=== PATIENT | male | born 1995 | race Caucasian/White ===

== ENCOUNTER 2024-12-01 21:38 | Emergency (ER) | payer SELFPAY ==
[~2024-12-01] VITALS: Ht 165.1 cm; Wt 77.0 kg
[2024-12-01 21:50] VITALS: TEMP 37; O2SAT 98
[2024-12-01] MEDS ORDERED: DIPHENHYDRAMINE 50MG CAPSULE PO ONE (22:45)
[2024-12-01] MEDS: PREDNISONE 20MG TABLET PO ONE (23:03)
[2024-12-01] MEDS: IBUPROFEN 600MG TABLET PO ONE (23:03)
[2024-12-01] MEDS: DIPHENHYDRAMINE 25MG CAPSULE PO NR (23:03)
[2024-12-02] MEDS ORDERED: P20 MT (01:18)
[2024-12-02] MEDS ORDERED: DIPH-1207 MT (01:18)
[2024-12-02 01:25] VITALS: BP 118/81; PULSE 84; RESP 16; O2SAT 98
== END 2024-12-02 01:30 | disposition home or self-care (01) ==
LOC: ER 21:38
DX: R22.0 Localized swelling, mass and lump, head (principal); Z98.890 Other specified postprocedural states
CPT/HCPCS: 99284; Q0163; J7512